=== PATIENT | female | born 1955 | race Caucasian/White ===

== ENCOUNTER 2020-08-29 13:13 | Inpatient (IN) | payer MEDICARE, BC ==
--- NOTE | 2020-08-29 14:00 | RAD ---
Exam:2 views right knee HISTORY: Trauma. Pain. COMPARISON: None FINDINGS: Comminuted, displaced fracture involving the distal right femur metadiaphysis. Severe trico mpartmental degenerative change. IMPRESSION: Fracture, dislocation the level of distal right femur metadiaphysis
[2020-08-29 14:23] LABS: #Lymphocytes 1.2 thou/uL (1.20-3.40); #Monocytes 1.4 thou/uL (0.11-0.59); #Neutrophils 16.9 thou/uL (1.40-6.50); %Eosinophils 0.1 % (0.0-10.0); %Monocytes 7.2 % (0.0-10.0); %Neutrophils 86.8 % (42.0-75.0); Hemoglobin 13.3 g/dL (12.0-16.0); Mean Corpuscular HGB CONC 33.7 g/dL (32.0-36.0); Mean Corpuscular Hemoglobin 31.6 pg (27.0-31.0); Mean Corpuscular Volume 93.7 fL (78.0-98.0); Platelet Count 159 thou/uL (130-400); RBC Distribution Width 12.7 % (11.5-14.5); Red Blood Cell (RBC) Count 4.21 mill/uL (4.20-5.40); White Blood Cell (WBC) Count 19.5 thou/uL (4.8-10.8)
[2020-08-29 14:45] LABS: ALT (SGPT) 18 U/L (8-55); AST (SGOT) 28 U/L (5-34); Albumin 3.7 g/dL (3.4-4.8); Alkaline Phosphatase 90 U/L (40-110); Anion Gap 12 mmol/L (10-20); BUN (Urea Nitrogen) 17 mg/dL (9.8-20.1); Bilirubin, Total 0.9 mg/dL (0.2-1.2); Calc. Creatinine Clearance 0 mL/min (70-130); Calcium 8.5 mg/dL (7.8-10.44); Carbon Dioxide 26 mmol/L (23-31); Chloride 105 mmol/L (98-107); Globulin 3.3 g/dL (2.4-3.5); Glucose 113 mg/dL (80-115); Potassium 3.7 mmol/L (3.5-5.1); Sodium 139 mmol/L (136-145)
[2020-08-29] MEDS ORDERED: Ketorolac Tromethamine 30 MG/ML VIAL ONE ×2 (14:46→15:28)
[2020-08-29] MEDS ORDERED: Ondansetron PF 4 MG/2 ML Vial ONE (14:46)
[2020-08-29] MEDS ORDERED: Dexamethasone 20 MG/5 ML VIAL ONE (14:46)
[2020-08-29] MEDS ORDERED: PROPOFOL 200 MG/20 ML VIAL ONE (14:46)
[2020-08-29] MEDS ORDERED: ePHEDrine 50 MG/ML VIAL ONE (14:46)
[2020-08-29] MEDS ORDERED: Lidocaine 1% PF 5 ML VIAL ONE (14:46)
[2020-08-29] MEDS ORDERED: Morphine 4 MG/ML VIAL ONE (15:28)
[2020-08-29] MEDS ORDERED: hydrALAZINE 20 MG/ML VIAL SLOW IVP PRN (15:37)
[2020-08-29] MEDS ORDERED: Ondansetron PF 4 MG/2 ML Vial IVP PRN (15:37)
[2020-08-29] MEDS ORDERED: Dextrose 50% Abboject 50 ML SYRINGE SLOW IVP PRN (15:37)
[2020-08-29] MEDS ORDERED: Dextrose 5% in Water 1,000 ML IV PRN (15:37)
[2020-08-29] MEDS ORDERED: Cyclobenzaprine 10 MG TAB PO PRN (15:39)
[2020-08-29] MEDS ORDERED: traMADol HCl 50 MG TAB PO PRN ×2 (15:39)
--- NOTE | 2020-08-29 17:02 | RAD ---
SINGLE VIEW OF THE CHEST: History: Fell on driveway. Chest pain. FINDINGS: Single view of the chest shows normal sized cardiomediastinal silhouette. Atherosclerotic calcificati ons are seen in the aorta. There is no evidence of consolidation, mass or pleural effusion. Degenerat luz marina changes are seen in the spine and shoulders. IMPRESSION: No evidence of acute cardiopulmonary disease. POS: EAA
[2020-08-29] MEDS ORDERED: Morphine 4 MG/ML VIAL SLOW IVP PRN (19:00)
[2020-08-29] MEDS: Acetaminophen 500 MG TAB PO SCH ×2 (20:39→20:51)
[2020-08-29] MEDS: Famotidine/PF 20 mg/2ml Vial SLOW IVP SCH (20:52)
[2020-08-29] MEDS: Ibuprofen 200 MG TAB PO SCH (20:52)
[2020-08-29] MEDS: Senokot S 8.6-50 MG TAB PO SCH (20:54)
--- NOTE | 2020-08-29 21:10 | HP ---
TRAUMA SURGEON: Dr. Conley. CONSULTING PHYSICIAN: Dr. Webb. HISTORY OF PRESENT ILLNESS: The patient is a 65-year-old female, who presented to the emergency department via EMS after a mechanical slip and fall on ice. The patient reports she was outside checking on her to make sure they were still leaking. She subsequently slipped on ice and fell. She was able to crawl back across the driveway and into the house and called EMS. Upon my evaluation, she complained of right-sided thigh pain. She states that she did not hit her head or lose consciousness. She does not take any anticoagulation. REVIEW OF SYSTEMS: All additional 10-point review of systems negative except as indicated above. PAST MEDICAL HISTORY: Hypertension, rheumatoid arthritis and osteoarthritis. PAST SURGICAL HISTORY: None. SOCIAL HISTORY: The patient denies tobacco, drug, alcohol use. MEDICATION: 1. Methotrexate. 2. Lisinopril. ALLERGIES: NO KNOWN DRUG ALLERGIES. PHYSICAL EXAMINATION: VITAL SIGNS: Temperature 97.7, pulse 68, respirations 16, oxygen saturation 98% on room air, blood pressure 125/62. GENERAL: Well-appearing elderly female, lying in bed with no signs of acute distress. PULMONARY: Equal chest rise and fall. Clear breath sounds bilaterally. No signs of pulmonary distress. CARDIAC: Regular rate and rhythm. The patient has a very mild mid systolic murmur. She does not have a history of this. No signs of heart failure. ABDOMEN: Soft, nontender, nondistended. EXTREMITIES: 2+ pulses in all extremities. Gross motor and sensation intact. No significant swelling noted. Right thigh tenderness without any deformity. C-SPINE: No step-offs or deformities. C-collar not in place. NEUROLOGIC: GCS is 15. Pupils equal, round, reactive to light bilaterally. LABORATORY FINDINGS: White count 19.5, hemoglobin 13.3, hematocrit 39.5, platelets 153. Sodium 139, potassium 3.7, chloride 105, bicarb 26, BUN 17, creatinine 0.79, glucose 113. DIAGNOSTIC FINDINGS: X-ray of the right knee demonstrates fracture dislocation at the level of the distal femur metaphysis. Chest x-ray demonstrates no evidence of acute cardiopulmonary disease. ASSESSMENT: 1. Status post mechanical fall from standing. 2. Right distal femur fracture. 3. History of hypertension, rheumatoid arthritis, and osteoarthritis. PLAN: The patient has been admitted to the Trauma Service. She will go to the regular surgical nursing floor. Dr. Webb of Orthopedic Surgery has been consulted who plans to take the patient to the OR tomorrow. She will have a regular diet. N.p.o. at midnight with fluid resuscitation. Restart home medications as clinically indicated. We will attempt to place a larger knee immobilizer to her right lower extremity to stabilize the fracture. They did not have a large enough immobilizer in the ER and the nursing staff was going to contact [place] [id number] and the OR to find an appropriately sized knee immobilizer. Postoperatively, the patient will likely need placement in acute rehab facility as she lives alone and does not have any family member around to help her. This patient was discussed with Dr. Conley before this dictation. Job ID: [id number]
[2020-08-29 21:45] LABS: Bilirubin Negative (Negative); Blood, Urine Negative (Negative); Clarity Clear (Clear); Glucose, Urine (Dipstick) Normal (Negative); Ketone, Urine Negative (Negative); Leukocyte 25 Leu/uL (Negative); Nitrite Negative (Negative); Protein, Urine (Dipstick) 20 mg/dL (Neg-Trace); RBC/HPF 0-3 HPF (0-3); Squamous Epithelial 0-3 HPF (0-3); Urobilinogen Normal mg/dL (Less than 2); WBC/HPF 0-3 HPF (0-3); pH, Urine 5.5 (5.0-9.0)
[2020-08-29 21:54] LABS: Bacteria/HPF None Seen HPF (None Seen); Mucous/LPF 1+ LPF (<2+)
[2020-08-29 22:20] VITALS: BMI 32.4
[2020-08-30] MEDS ORDERED: Sodium Chloride 0.9% 1,000 ML IV SCH (00:01)
[2020-08-30 01:19] LABS: SARS-CoV-2 PCR by NAA Not Detected (NotDetected)
[2020-08-30] MEDS ORDERED: Ibuprofen 200 MG TAB ONE ×2 (04:46→14:01)
[2020-08-30] MEDS ORDERED: Acetaminophen 500 MG TAB ONE ×2 (04:46→15:32)
[2020-08-30] MEDS: Acetaminophen 500 MG TAB PO SCH ×4 (04:49→20:51)
[2020-08-30] MEDS: Ibuprofen 200 MG TAB PO SCH ×3 (04:49→20:51)
[2020-08-30] MEDS ORDERED: Fentanyl 100 MCG/2 ML VIAL ONE ×3 (10:02→12:01)
[2020-08-30] MEDS ORDERED: Neomycin-Polymyxin 1 ML AMP ONE (10:45)
[2020-08-30] MEDS ORDERED: EPINEPHrine 1 MG/ML AMP ONE (11:22)
[2020-08-30] MEDS ORDERED: Bupivacaine PF 0.5% 30 ML VIAL ONE (11:22)
[2020-08-30] MEDS ORDERED: HYDROmorphone 2 MG/ML VIAL SLOW IVP PRN (11:26)
[2020-08-30] MEDS ORDERED: Meperidine HCl/PF 25 MG/ML VIAL SLOW IVP PRN (11:26)
[2020-08-30] MEDS ORDERED: Ondansetron HCl/PF 4 MG/2 ML Vial IVP PRN (11:26)
[2020-08-30] MEDS ORDERED: Promethazine HCl 25 MG/ML VIAL SLOW IVP PRN (11:26)
--- NOTE | 2020-08-30 12:35 | CON ---
DATE OF CONSULTATION: 08/30/2020 HISTORY OF PRESENT ILLNESS: Ms. Nevarez is a 65-year-old white female, who had a mechanical slip and fall, had immediate pain, deformity in the right distal thigh and knee area. The patient was brought to the emergency room and x-rays revealed displaced fracture of the right distal femur. She has no neurologic complaints. The patient states that she has rheumatoid arthritis and she has had fairly severe arthritis in both knees. PAST MEDICAL HISTORY: Medical illnesses; 1. Hypertension. 2. Rheumatoid arthritis. CURRENT MEDICATIONS: 1. Methotrexate. 2. Lisinopril. PAST SURGICAL HISTORY: None. ALLERGIES: NONE. PHYSICAL EXAMINATION: GENERAL: The patient is a very pleasant, white female, alert and oriented x3. The patient is afebrile. VITAL SIGNS: Stable. EXTREMITIES: The patient has good range of motion of all of her extremities except for the right lower extremity. She has obvious deformity in the right distal thigh and knee area. She has good peripheral pulses. Good sensation. She is able to flex and extend her toes or ankles well. DIAGNOSTIC DATA: X-ray shows fracture of the right distal femur in the distal shaft supracondylar region with displacement. PLAN: The patient will require open reduction and internal fixation of the right distal femur. Plan on using a retrograde interlocking intramedullary rodding of the right femur. The patient's questions were answered, agreed to the procedure. Job ID: [id number]
--- NOTE | 2020-08-30 12:42 | OP ---
DATE OF PROCEDURE: 08/30/2020 PREOPERATIVE DIAGNOSIS: Fracture of the right distal femoral shaft and into the supracondylar region of the right lower extremity. POSTOPERATIVE DIAGNOSIS: Fracture of the right distal femoral shaft and into the supracondylar region of the right lower extremity. PROCEDURE PERFORMED: Interlocking intramedullary rodding of the right distal femoral fracture. ANESTHESIA: General. DESCRIPTION OF PROCEDURE: The patient was given preoperative IV antibiotics, taken to the operating room, placed in supine position. Satisfactory general anesthesia was performed. The right lower extremity was sterilely prepped and draped in usual fashion. A longitudinal incision was made over the anterior aspect of the knee and a medial parapatellar arthrotomy was performed. The patient was noted to have fairly severe arthritis, which was consistent with a rheumatoid arthritis that she has had for several years. A guide was placed through the distal femur just superior to the intercondylar notch and a drill was used to make a 13 mm drill into the intramedullary canal. A guidewire was then placed through the distal femur across the fracture and into the proximal aspect of the femur. Appropriate size nail was measured as 380 mm. The intramedullary canal was reamed up to 14 mm and a Synthes retrograde femoral nail that measured 13 mm x 380 mm was inserted into the distal aspect of the femur crossing the fracture and into the proximal aspect of the femur. Two 5.0 locking screws were placed from lateral to medial in the bone and in the distal aspect of the gene. A 0 INCAP was locked into the distal aspect of the femur and then an additional 5.0 locking screw was placed from anterior to posterior in the proximal aspect of the femur. This was all performed under fluoroscopic visualization. The wounds were copiously irrigated with antibiotic solution. The knee wound was closed using #2 Vicryl for the retinacular tissue, 0 Vicryl for the fat and subcutaneous tissue, and the skin was closed with skin surinder. The small incisions for the interlocking screws were just closed with surinder. The sterile dressing was applied. The patient was awakened, extubated, and transferred to the recovery room in stable condition. ESTIMATED BLOOD LOSS: 400 mL. COMPLICATIONS: None. Job ID: [id number]
[2020-08-30] MEDS ORDERED: Fentanyl 100 MCG/2 ML VIAL SLOW IVP PRN (13:27)
[2020-08-30] MEDS ORDERED: HYDROcodone/Acetaminophen 10/325 mg Tablet PO PRN ×2 (13:28)
[2020-08-30] MEDS ORDERED: Ondansetron PF 4 MG/2 ML Vial IVP PRN (13:29)
[2020-08-30] MEDS ORDERED: CEFAZOLIN 2 GM in Premix Bag 1 BAG IVPB SCH (14:00)
[2020-08-30] MEDS: Senokot S 8.6-50 MG TAB PO SCH ×2 (14:35→20:51)
[2020-08-30] MEDS: Polyethylene Glycol 3350 17 GM Packet PO SCH (14:35)
[2020-08-30] MEDS: Famotidine/PF 20 mg/2ml Vial SLOW IVP SCH ×2 (14:35→20:51)
[2020-08-30] MEDS: Sodium Chloride 0.9% 1,000 ML IV SCH ×2 (15:25→23:01)
[2020-08-30 18:06] LABS: Anion Gap 11 mmol/L (10-20); BUN (Urea Nitrogen) 18 mg/dL (9.8-20.1); Calc. Creatinine Clearance 124 mL/min (70-130); Calcium 7.9 mg/dL (7.8-10.44); Carbon Dioxide 23 mmol/L (23-31); Chloride 107 mmol/L (98-107); Glucose 107 mg/dL (80-115); Phosphorus 3.1 mg/dL (2.3-4.7); Potassium 3.7 mmol/L (3.5-5.1); Sodium 137 mmol/L (136-145)
--- NOTE | 2020-08-30 18:43 | RAD ---
RIGHT FEMUR TWO VIEWS: HISTORY: ORIF. COMPARISON: Knee radiograph from the prior day. FINDINGS: Satisfactory appearance of the retrograde screw to the femur. IMPRESSION: Satisfactory postoperative appearance. POS: HOME
[2020-08-30] MEDS: Ketorolac Tromethamine 30 MG/ML VIAL IVP SCH ×2 (18:53→23:01)
[2020-08-30 20:24] LABS: #Lymphocytes 1.1 thou/uL (1.20-3.40); #Monocytes 0.7 thou/uL (0.11-0.59); #Neutrophils 4.6 thou/uL (1.40-6.50); %Basophils 0.4 % (0.0-1.0); %Eosinophils 0.1 % (0.0-10.0); %Lymphocytes 17.3 % (21.0-51.0); %Monocytes 10.4 % (0.0-10.0); %Neutrophils 71.8 % (42.0-75.0); Hemoglobin 10.9 g/dL (12.0-16.0); MDiff Complete? YES; Mean Corpuscular HGB CONC 33.3 g/dL (32.0-36.0); Mean Corpuscular Hemoglobin 31.5 pg (27.0-31.0); Mean Corpuscular Volume 94.6 fL (78.0-98.0); Mean Platelet Volume 9.5 fL (7.4-10.4); Platelet Count 115 thou/uL (130-400); Platelet Morphology Comment Appears Decreased; Polychromasia SLIGHT = 2-3 cells (100X) (0-2/hpf); RBC Distribution Width 12.7 % (11.5-14.5); Red Blood Cell (RBC) Count 3.45 mill/uL (4.20-5.40); White Blood Cell (WBC) Count 6.4 thou/uL (4.8-10.8)
[2020-08-31] MEDS ORDERED: CEFAZOLIN 2 GM in Premix Bag 1 BAG IVPB SCH (03:00)
[2020-08-31] MEDS: Acetaminophen 500 MG TAB PO SCH ×4 (03:42→20:51)
[2020-08-31 05:26] LABS: Anion Gap 11 mmol/L (10-20); BUN (Urea Nitrogen) 17 mg/dL (9.8-20.1); Carbon Dioxide 24 mmol/L (23-31); Chloride 108 mmol/L (98-107); Potassium 3.9 mmol/L (3.5-5.1); Sodium 139 mmol/L (136-145)
[2020-08-31 05:27] LABS: Calc. Creatinine Clearance 118 mL/min (70-130); Calcium 7.4 mg/dL (7.8-10.44); Glucose 126 mg/dL (80-115)
[2020-08-31 05:41] LABS: #Monocytes 0.5 thou/uL (0.11-0.59); #Neutrophils 5.5 thou/uL (1.40-6.50); %Basophils 0.2 % (0.0-1.0); %Eosinophils 0.1 % (0.0-10.0); %Lymphocytes 13.9 % (21.0-51.0); %Monocytes 7.3 % (0.0-10.0); %Neutrophils 78.5 % (42.0-75.0); Hemoglobin 8.7 g/dL (12.0-16.0); Mean Corpuscular HGB CONC 33.9 g/dL (32.0-36.0); Mean Corpuscular Hemoglobin 32.4 pg (27.0-31.0); Mean Corpuscular Volume 95.5 fL (78.0-98.0); Mean Platelet Volume 8.9 fL (7.4-10.4); Platelet Count 90 thou/uL (130-400); RBC Distribution Width 12.6 % (11.5-14.5); Red Blood Cell (RBC) Count 2.68 mill/uL (4.20-5.40)
[2020-08-31] MEDS: Ibuprofen 200 MG TAB PO SCH ×3 (06:01→20:51)
[2020-08-31] MEDS: Ketorolac Tromethamine 30 MG/ML VIAL IVP SCH ×2 (06:01→13:14)
[2020-08-31] MEDS: Sodium Chloride 0.9% 1,000 ML IV SCH ×2 (06:03→22:46)
--- NOTE | 2020-08-31 09:22 | RAD ---
Exam:2 views right knee HISTORY: Trauma. Pain. COMPARISON: None FINDINGS: Comminuted, displaced fracture involving the distal right femur metadiaphysis. Severe trico mpartmental degenerative change. IMPRESSION: Fracture, dislocation the level of distal right femur metadiaphysis Transcribed Date/Time: 08/31/2020 9:22 AM
[2020-08-31] MEDS: Polyethylene Glycol 3350 17 GM Packet PO SCH (09:46)
[2020-08-31] MEDS: Famotidine/PF 20 mg/2ml Vial SLOW IVP SCH ×2 (09:47→20:52)
[2020-08-31] MEDS: Senokot S 8.6-50 MG TAB PO SCH ×2 (09:48→20:52)
[2020-08-31] MEDS: Gabapentin 100 MG CAP PO SCH (09:48)
--- NOTE | 2020-08-31 10:27 | PRG ---
DATE OF SERVICE: 08/31/2020 SUBJECTIVE: The patient underwent retrograde interlocking intramedullary rodding of the right distal femur fracture. She reports good pain control. She has been working with physical therapy. OBJECTIVE: The patient has been afebrile. Vital signs have been stable. LABORATORY DATA: Show hemoglobin this morning 8.7, hematocrit 25.6. The right lower extremity is neurovascularly intact. PLAN: The patient will continue to work with physical and occupational therapy. Her plan at discharge is to try to go to rehab to become more independent and stronger and more stable. Case management will work with the patient as far as this is concerned. Job ID: [id number]
--- NOTE | 2020-08-31 15:20 | PRG ---
DATE OF SERVICE: 08/31/2020 SUBJECTIVE: The patient is currently on the surgical floor. She is status post ground level fall, in which, she sustained a right distal femur fracture. She has undergone open reduction and internal fixation of same, which she tolerated well. She reports that her pain is controlled. She is tolerating a diet and she has began working with Physical and Occupational Therapy. This morning, in her session, she was able to walk 14 feet with her rolling walker. The patient is currently awaiting placement, hopefully to [facility]. PHYSICAL EXAMINATION: VITAL SIGNS: Temperature is 98.1, heart rate 87, blood pressure 108/69, respirations 16, and oxygen saturation 98% on room air. GENERAL: The patient is resting comfortably in bed. She is awake, alert, conversant, appropriate. [place] Coma Scale is 15. HEENT: Unremarkable. LUNGS: Show nonlabored respirations with equal rise and fall of the chest. ABDOMEN: Soft, nondistended. EXTREMITIES: Neurovascularly intact x4. Postop dressing is clean, dry, and intact. LABORATORY FINDINGS: White blood cell count 7.0, hemoglobin 8.7, hematocrit 25.6, platelets 90. Sodium 139, potassium 3.9, chloride 108, CO2 of 24, BUN 17, creatinine 0.74, glucose 126. There are no radiographs reviewed this morning. ASSESSMENT/PLAN: 1. Status post ground level fall. 2. Status post open reduction and internal fixation of right distal femur fracture. 3. History of hypertension, rheumatoid arthritis, and osteoarthritis. Plan will be to continue supportive care. Encourage physical and occupational therapy and await final placement decision. The patient was seen with Dr. Yarbrough during rounds this morning. Job ID: [id number]
[2020-08-31 18:43] LABS: Anion Gap 10 mmol/L (10-20); BUN (Urea Nitrogen) 19 mg/dL (9.8-20.1); Calc. Creatinine Clearance 124 mL/min (70-130); Calcium 7.4 mg/dL (7.8-10.44); Carbon Dioxide 24 mmol/L (23-31); Chloride 111 mmol/L (98-107); Glucose 124 mg/dL (80-115); Potassium 4.2 mmol/L (3.5-5.1); Sodium 141 mmol/L (136-145)
[2020-09-01] MEDS: Ibuprofen 200 MG TAB PO SCH ×3 (04:44→20:24)
[2020-09-01] MEDS: Acetaminophen 500 MG TAB PO SCH ×4 (04:44→20:24)
[2020-09-01] MEDS: Sodium Chloride 0.9% 1,000 ML IV SCH (06:01)
[2020-09-01 06:27] LABS: #Monocytes 0.6 thou/uL (0.11-0.59); #Neutrophils 4.8 thou/uL (1.40-6.50); %Basophils 0.4 % (0.0-1.0); %Eosinophils 0.1 % (0.0-10.0); %Lymphocytes 15.7 % (21.0-51.0); %Monocytes 9.3 % (0.0-10.0); %Neutrophils 74.5 % (42.0-75.0); Hemoglobin 7.9 g/dL (12.0-16.0); Mean Corpuscular HGB CONC 34.5 g/dL (32.0-36.0); Mean Corpuscular Hemoglobin 32.9 pg (27.0-31.0); Mean Corpuscular Volume 95.4 fL (78.0-98.0); Mean Platelet Volume 9.4 fL (7.4-10.4); Platelet Count 77 thou/uL (130-400); RBC Distribution Width 12.4 % (11.5-14.5); Red Blood Cell (RBC) Count 2.41 mill/uL (4.20-5.40); White Blood Cell (WBC) Count 6.5 thou/uL (4.8-10.8)
[2020-09-01 06:36] LABS: Magnesium 2.1 mg/dL (1.6-2.6)
[2020-09-01 06:39] LABS: Phosphorus 1.7 mg/dL (2.3-4.7)
[2020-09-01] MEDS ORDERED: PHOS-NAK 1 PKT PACK PO SCH (08:30)
[2020-09-01] MEDS: Gabapentin 100 MG CAP PO SCH (09:11)
[2020-09-01] MEDS: Famotidine/PF 20 mg/2ml Vial SLOW IVP SCH (09:11)
[2020-09-01] MEDS: Folic Acid 1 MG TAB PO SCH (09:11)
[2020-09-01] MEDS: Aspirin 81 mg Enteric Coated Tablet PO SCH ×2 (09:11→20:23)
[2020-09-01] MEDS: Lisinopril 10 MG TAB PO SCH (09:12)
[2020-09-01] MEDS: Polyethylene Glycol 3350 17 GM Packet PO SCH (09:12)
[2020-09-01] MEDS: Senokot S 8.6-50 MG TAB PO SCH ×2 (09:13→20:23)
--- NOTE | 2020-09-01 12:01 | PRG ---
DATE OF SERVICE: 08/30/2020 OBJECTIVE: A 65-year-old female, status post right distal femur repair this morning. The patient is lying in bed comfortably, still under the influence of anesthesia. Pain well controlled. The patient is started on regular diet. PT/OT and disposition pending. OBJECTIVE: VITAL SIGNS: Stable. GENERAL: Lying in bed comfortably, in no acute distress. CARDIAC: Regular rate and rhythm. RESPIRATORY: Equal breath sounds bilaterally. No accessory muscle use. The patient is speaking full sentences. ABDOMEN: Soft, nontender. EXTREMITIES: Right lower extremity, knee immobilizer in place. Bandage clean, dry, and intact. equal sensation bilaterally in the lower extremities. ASSESSMENT: 1. Status post mechanical fall. 2. Right distal femur fracture, status postoperative. 3. Hypertension. 4. Rheumatoid arthritis and osteoarthritis. PLAN: The patient was examined postoperatively right femur fracture repair and knee immobilizer. The patient is resting comfortably in bed on the surgical floor. No acute problems. PT/OT pending. Dispo pending Job ID: [id number] [facility]
--- NOTE | 2020-09-01 13:33 | PRG ---
DATE OF SERVICE: 09/01/2020 SUBJECTIVE: Ms. Nevarez is 2 days status post ORIF of right distal femur utilizing a retrograde interlocking intramedullary gene. The patient states that her pain is decreasing that she is very interested in going to rehab after discharge. OBJECTIVE: VITAL SIGNS: The patient has been afebrile. Last blood pressure 113/70. LABORATORY DATA: Hemoglobin this morning is 7.9. PLAN: The patient will continue to work with PT and OT. The patient is awaiting bed availability to be discharged to rehab. Job ID: [id number]
--- NOTE | 2020-09-01 15:31 | PRG ---
DATE OF SERVICE: SUBJECTIVE: The patient remains on the surgical floor. She is status post a ground level fall, in which she sustained a right distal femur fracture. She underwent open reduction and internal fixation of her fracture, which she tolerated well. She has been working with physical and occupational therapy and she is currently awaiting placement in [facility]. This morning, she was able to walk 32 feet with assistance and the use of a rolling walker. She reports that her pain is controlled. She is tolerating a diet and her bowel function has returned. OBJECTIVE: VITAL SIGNS: Temperature is 98.4, heart rate 89, blood pressure 144/75, respirations 16, and oxygen saturation 95% on room air. GENERAL: The patient is resting comfortably in bed. She is awake, alert, conversant, appropriate. [place] Coma Scale is 15. HEENT: Unremarkable. LUNGS: Clear to auscultation bilaterally. HEART: Regular rate and rhythm. ABDOMEN: Soft, nondistended, with active bowel sounds. EXTREMITIES: Neurovascularly intact x4. LABORATORY FINDINGS: White blood cell count 6.5, hemoglobin 7.9, hematocrit 23.0, platelets 77. Chemistries are pending. There are no radiographs reviewed this morning. ASSESSMENT AND PLAN: 1. Status post ground level fall. 2. Status post open reduction and internal fixation of right distal femur fracture. 3. History of hypertension, rheumatoid arthritis, and osteoarthritis. Plan will be to continue supportive care. Encourage physical and occupational therapy and await final placement decision. The patient was seen with Dr. Yarbrough during rounds this morning. Job ID: [id number]
[2020-09-01] MEDS: PHOS-NAK 1 PKT PACK PO SCH (17:24)
[2020-09-01 18:07] LABS: Anion Gap 12 mmol/L (10-20); BUN (Urea Nitrogen) 17 mg/dL (9.8-20.1); Calc. Creatinine Clearance 130 mL/min (70-130); Calcium 7.5 mg/dL (7.8-10.44); Carbon Dioxide 24 mmol/L (23-31); Chloride 109 mmol/L (98-107); Glucose 125 mg/dL (80-115); Potassium 4.1 mmol/L (3.5-5.1); Sodium 141 mmol/L (136-145)
[2020-09-02] MEDS: Acetaminophen 500 MG TAB PO SCH ×4 (06:41→21:37)
[2020-09-02] MEDS: Ibuprofen 200 MG TAB PO SCH ×3 (06:42→21:37)
[2020-09-02 07:04] LABS: Anion Gap 9 mmol/L (10-20); BUN (Urea Nitrogen) 16 mg/dL (9.8-20.1); Calc. Creatinine Clearance 148 mL/min (70-130); Calcium 7.6 mg/dL (7.8-10.44); Carbon Dioxide 25 mmol/L (23-31); Chloride 110 mmol/L (98-107); Glucose 110 mg/dL (80-115); Magnesium 2.1 mg/dL (1.6-2.6); Phosphorus 2.4 mg/dL (2.3-4.7); Potassium 3.9 mmol/L (3.5-5.1); Sodium 140 mmol/L (136-145)
[2020-09-02 07:09] LABS: #Lymphocytes 1.4 thou/uL (1.20-3.40); #Monocytes 0.6 thou/uL (0.11-0.59); %Basophils 0.8 % (0.0-1.0); %Eosinophils 0.3 % (0.0-10.0); %Lymphocytes 22.5 % (21.0-51.0); %Monocytes 9.3 % (0.0-10.0); %Neutrophils 67.1 % (42.0-75.0); Hemoglobin 7.7 g/dL (12.0-16.0); Mean Corpuscular Volume 94.1 fL (78.0-98.0); Mean Platelet Volume 8.6 fL (7.4-10.4); Platelet Count 103 thou/uL (130-400); RBC Distribution Width 12.5 % (11.5-14.5); Red Blood Cell (RBC) Count 2.42 mill/uL (4.20-5.40)
[2020-09-02] MEDS: PHOS-NAK 1 PKT PACK PO SCH ×2 (09:47→17:22)
[2020-09-02] MEDS: Lisinopril 10 MG TAB PO SCH (09:47)
[2020-09-02] MEDS: Aspirin 81 mg Enteric Coated Tablet PO SCH ×2 (09:47→21:37)
[2020-09-02] MEDS: Senokot S 8.6-50 MG TAB PO SCH ×2 (09:48→21:39)
[2020-09-02] MEDS: Folic Acid 1 MG TAB PO SCH (09:48)
[2020-09-02] MEDS: Gabapentin 100 MG CAP PO SCH (09:48)
[2020-09-02] MEDS: Polyethylene Glycol 3350 17 GM Packet PO SCH (09:49)
[2020-09-02 21:49] VITALS: BP 160/76; TEMP 97.8
[2020-09-05] MEDS ORDERED: Methotrexate Sodium 2.5 MG TAB PO SCH ×2 (09:00→12:10)
== END 2020-09-02 22:50 | DRG 482 ==
LOC: ERS 13:13 → SURG B 15:14
PROVIDERS: ADMIT Surgery; ATTEND Surgery
PROC: 0QH834Z Insertion of Internal Fixation Device into Right Femoral Shaft, Percutaneous Approach (ICD-10-PCS; principal; 2020-08-30)
DX: S72.451A Displaced supracondylar fracture without intracondylar extension of lower end of right femur, initial encounter for closed fracture (principal); Z20.822 Contact with and (suspected) exposure to COVID-19; I10 Essential (primary) hypertension; M06.9 Rheumatoid arthritis, unspecified; Z79.899 Other long term (current) drug therapy; W19.XXXA Unspecified fall, initial encounter; M17.0 Bilateral primary osteoarthritis of knee
CPT/HCPCS: 36415; 71045; 76000; 80048; 80053; 81003; 81015; 83735; 84100; 85025; 86850; 86900; 86901; 87635; 94760; 96374; 96375; C1713; J0171; J0690; J1100; J1885; J2270; J2405; J2704; J3010; J3490; S0020; S0028; U0003; U0005

== ENCOUNTER 2021-11-23 13:06 | Outpatient (CLI) | payer MEDICARE, BC | END 2021-11-23 13:07 | disposition home or self-care (01) | LOC: BICMAMMO 13:06 | PROVIDERS: ATTEND Internal Medicine Rheumatology | DX: Z13.820 Encounter for screening for osteoporosis (principal); M85.852 Other specified disorders of bone density and structure, left thigh | CPT/HCPCS: 77080 ==